=== PATIENT | female | born 1985 | race Caucasian/White ===

== ENCOUNTER 2020-04-25 12:48 | Emergency (ER) | payer OTHER, SELFPAY ==
--- NOTE | ~2020-04-25 | XR_ITS ---
XR toe 5th RT min 2V DATE: 04/25/2020 13:11 INDICATION: Fifth digit injury, pain TECHNIQUE: 4 views COMPARISON: None FINDINGS: There is a transverse fracture at the proximal shaft of the proximal phalanx of the fifth d igit with minimal medial and anterior displacement, minimal apex anteromedial angulation. No dislocation. IMPRESSION: Transverse proximal shaft fracture Reviewed, dictated and finalized at location A.
--- NOTE | ~2020-04-25 | XR_ITS ---
XR toe 5th RT min 2V DATE: 04/25/2020 13:52 INDICATION: Reduction of fifth digit fracture TECHNIQUE: 4 views COMPARISON: 04/25/2020 right fifth toe FINDINGS: Again noted is a transverse proximal shaft fracture of the proximal phalanx of fifth digit there is minimal displacement. There is approximately 15 degrees apex medial and approximately 20-30 degrees apex anterior angulation. IMPRESSION: Fracture of proximal shaft of proximal phalanx of fifth digit Reviewed, dictated and finalized at location A.
--- NOTE | 2020-04-25 12:58 | ED.LOWEXIN ---
HPI - Extremity Injury (Lower) General Chief Complaint: Extremity Injury, Lower Stated Complaint: right pinky toe Time Seen by Provider: 04/25/20 13:15 Source: patient and RN notes reviewed Mode of arrival: ambulatory Limitations: no limitations History of Present Illness HPI Narrative: 34-year-old female presents with concern for injury to the fifth digit of her right foot. Reports prior to arrival she jammed her toe on a door frame. Reports pain at rest, worsening pain with weightbearing and range of motion. Reports swelling, bruising. Denies any intervention prior to arrival MD complaint: foot injury Injury: Right: toes Related Data Home Medications Medication Instructions Recorded Confirmed bupropion HCl 150 mg 24 hr tablet, 150 mg PO QAM 06/14/19 04/25/20 extended release Allergies Allergy/AdvReac Type Severity Reaction Status Date / Time No Known Allergies Verified 04/25/20 12:51 Review of Systems Review of Systems: Narrative: CONSTITUTIONAL: Denies malaise, chills, sweats, or fever. CARDIOVASCULAR: Denies chest pain, palpitations, or edema. RESPIRATORY: Denies cough or dyspnea. SKIN: Reports bruising, swelling MUSCULOSKELETAL: Reports pain in the fifth digit of the right foot NEUROLOGIC: Denies numbness, weakness All systems reviewed & are unremarkable except as noted in HPI and below PMFSH Family History Family History (Updated 03/21/19 @ 08:07 by DOCTOR UNKNOWN) Father Diabetes mellitus Patient's father is in good health Mother Depression Hypertension Patient's mother is in good health Social History Social History Alcohol intake: current Comments At time of signature, agree with nursing past medical, surgical, social and family history. There is no relevant family history pertinent to the presenting complaint Exam Narrative: Exam Narrative: GENERAL: Well-appearing, well-nourished, and in no acute distress. HEAD: Normocephalic, atraumatic. EYES: PERRLA, conjunctivae clear NECK: Supple. CHEST: Speaks in full sentences. No respiratory distress. HEART: Regular rate and rhythm. Normal and equal peripheral pulses. EXTREMITIES: Fifth digit of right foot has normal sensation, limited normal range of motion. Mild edema and ecchymosis. Normal sensation with sensitivity to light touch and pain. No open wounds, no skin tenting, no devitalized tissue or atrophy, no trophic changes, no obvious deformity, alignment normal, no point tenderness, nearby joints and structures intact. Distal pulses palpable and equal bilaterally, skin warm, dry, pink. Capillary refill less than 3 seconds. SKIN: Warm, dry, no rash. NEURO: Alert and oriented x3. PSYCH: Normal mood and affect Course Course Emergency Course: Patient is aware of diagnosis, understands and agrees to treatment plan. Anticipatory guidance given. Patient agrees to follow-up as directed and is aware of reasons to seek care at the emergency department. Portions of this record may have been created with voice recognition software Vital Signs Vital signs: Vital Signs Temperature 97.3 F L 04/25/20 13:00 Pulse Rate 71 04/25/20 13:00 Respiratory Rate 16 04/25/20 13:00 Blood Pressure 127/78 04/25/20 13:00 Pulse Oximetry 100 04/25/20 13:00 Temperature 97.3 F L 04/25/20 13:00 Pulse Rate 71 04/25/20 13:00 Respiratory Rate 16 04/25/20 13:00 Blood Pressure 127/78 04/25/20 13:00 Pulse Oximetry 100 04/25/20 13:00 Reviewed. Procedures Orthopedic Fracture Reduction Fracture #1: Fracture Reduction date: 04/25/20 Fracture Reduction time: 13:45 Time Out Performed: Yes Side: right Fracture Reduction Location: toe Analgesia: none Pre-Procedure Neuro Vascular Exam: normal Technique: direct manipulation Post Reduction X-rays Demonstrate: other (No change) Post-reduction neuro exam: intact Post-reduction vascular exam: intact Splint Appl
[2020-04-25 13:00] VITALS: BP 127/78; PULSE 71; RESP 16; TEMP 36.3; O2SAT 100
[2020-04-25] MEDS: IBUPROFEN 400 MG TABLET 800 MG PO (13:58)
== END 2020-04-25 14:15 | disposition home or self-care (01) ==
PROVIDERS: Emergency Provider Nurse Practitioner; PCP Family Medicine
DX: S92.511A Displaced fracture of proximal phalanx of right lesser toe(s), initial encounter for closed fracture (principal); W22.01XA Walked into wall, initial encounter; Y93.9 Activity, unspecified
CPT/HCPCS: 28515; 73660; 99215; A9270; G0463

== ENCOUNTER → 2020-10-26 00:56 | Outpatient (CLI) | payer OTHER, SELFPAY ==
[2020-10-26 20:24] LABS: SARS-CoV-2 RNA PCR Negative
== END ==
PROVIDERS: PCP Family Medicine; Visit Provider Surgery Plastic and Reconstructive Surgery
DX: Z01.812 Encounter for preprocedural laboratory examination (principal); Z20.822 Contact with and (suspected) exposure to COVID-19
CPT/HCPCS: C9803; U0003; U0005

== ENCOUNTER 2020-10-29 08:49 | Day surgery (SDC) | payer OTHER, SELFPAY ==
[2020-10-20 13:47] VITALS: BMI 30.4
--- NOTE | 2020-10-20 13:57 | SUR.PREOP ---
Pre-op clearance obtained from pcp Dr. Senior and Cardio-Pulmonary Dr.- Dr. Simona León-- No Pulmonary contraindication to surgery Dr. Whitehead informed of information and no pre-op anesthesia testing needed
[2020-10-29] VITALS (7 sets, daily range): BP systolic 131–146; BP diastolic 83–91; PULSE 63–82; RESP 15–18; TEMP 36.3–36.9; O2SAT 98–100; BMI 29.7
[2020-10-29] MEDS: LACTATED RINGERS 1,000 ML 30 ML IV CONT ×2 (10:00→14:46)
--- NOTE | 2020-10-29 10:09 | WPDANESEPPF ---
Anes - Initial Pre Proc Eval Procedure: Operation Date: 10/29/20 11:00 Proposed Procedures p Bilateral Breast Augmentation Mammoplasty with Galaflex - Richmond Pradhan MD s Bilateral Breast Mastopexy - Richmond Pradhan MD Date/Time: 10/29/20 10:09 Surgeon: Richmond Pradhan MD Pre Op Diagnosis: Micromastia Patient Data Age: 35 Gender: F Height: 1.6 m Weight: 78 kg Allergies Allergy/AdvReac Type Severity Reaction Status Date / Time No Known Allergies Verified 10/29/20 10:10 Home Medications Medication Instructions Recorded Confirmed Type alprazolam 0.25 mg tablet 0.25 mg PO TID PRN 10/08/20 10/20/20 History polyethylene glycol 3350 17 17 g PO DAILY 10/08/20 10/20/20 History gram/dose oral powder docusate sodium 100 mg capsule 100 mg PO DAILY #14 cap 10/15/20 10/20/20 Rx ondansetron HCl 4 mg tablet 4 mg PO Q8H #28 tablet 10/15/20 10/20/20 Rx carisoprodol 350 mg tablet 350 mg PO TID PRN #21 tablet 10/19/20 10/20/20 Rx oxycodone-acetaminophen 5 mg-325 1 tablet PO Q6H PRN #15 tablet 10/19/20 10/20/20 Rx mg tablet Patient hx anesthesia problems: none Family hx anesthesia problems: none PMFSH Past Medical History Medical History (Updated 10/29/20 @ 10:10 by Danilo Whitehead DO) Anxiety Chronic constipation History of pulmonary embolism after appendectomy Obesity (BMI 30.0-34.9) Seasonal allergic rhinitis Surgical History Surgical History History of appendectomy Family History Family History Father Diabetes mellitus Patient's father is in good health Mother Depression Hypertension Patient's mother is in good health Social History Social History Smoking status: Former smoker Tobacco type: e-cigarettes/vaping Alcohol intake: current Substance use: never Living arrangements: with family Gender identity (if verbalized by the patient): Female Spiritual care concerns: No Anes - Eval Final PreProcedure Day of Procedure 10/29/20 10:09 Patient weight: obese Heart: regular rate and rhythm Lungs: clear to auscultation and normal air movement Airway: Mallampati scale class II Neurological: alert and oriented Last oral intake: >/= 8 hours ASA classification: II Emergent: no Anesthetic plan: proceed Anesthesia type and monitoring: general LMA and standard monitoring Informed Consent: The patient's anesthetic plan and its attendant risks and benefits were discussed with the patient/family/POA. Questions were solicited and answers provided to the satisfaction of the patient/family/POA.
--- NOTE | 2020-10-29 11:16 | WPDHPUPDATE1 ---
History and Physical Update Update Date/Time: 10/29/20 11:16 History and Physical has been reviewed, including an updated exam of the patient. There are NO changes in the patient's condition. Risks, benefits, and alternatives have been discussed and questions answered. Patient agrees to proceed with procedure.
--- NOTE | 2020-10-29 11:40 | PM.PROC ---
Procedure Note - Detailed Date of procedure: 10/29/20 Pre-op diagnosis: Micromastia Breast Ptosis Post-op diagnosis: same Procedure performed: Bilateral Augmentation Mastopexy with Galaflex Description of procedure: She is here today for bilateral breast augmentation. Previously and again today the risks, benefits, alternatives were discussed in extensive detail. I wanted her to be very realistic about the risks involved as well as expectations. We discussed aftercare and what to monitor for. Made sure answered all of her questions to her satisfaction today and consent was obtained. Marked in the preoperative holding area with their verification. The patient was taken to the operating room placed supine on the operating table. Anesthesia was provided by anesthesiology. A surgical time-out was taken. We cleansed the skin and 1% lidocaine and 0.25% Marcaine with epinephrine was used anesthetize as a field block. She was prepped and draped in a standard sterile fashion. Tegaderm nipple Cam were placed. I de-epithelialized inferior flap to provide coverage at the T junction. A 15 blade used to make an incision above the inframammary fold. Dissection was continued at 45 degree angle until the chest wall as identified. I incised the pectoralis major along its inferior border and completely released the inferior border leaving the medial border intact. I created a subpectoral pocket in the appropriate dimensions based on our preoperative planning for the implant. I then copiously irrigated with saline solution and verified a strict hemostasis. Next the use a triple antibiotic and Betadine containing solution to irrigate the pocket. I washed my gloves with the triple antibiotic and Betadine solution. We washed the implant immediately upon opening it with this solution and only opened it when we needed it. I used implant funnel and no-touch technique. The implant was introduced into the pocket using the funnel. Having verified positioning of the implant this was closed using 2-0 Vicryl. I then tailor tacked the breast into place. Placed her in a sitting position and verified my bejarano. Marked out the nipple-areolar complex at 38 mm. This is based on preoperative planning intraoperative measurements on observation which was in full agreement. I then placed supine. De-epithelialized a superior pedicle. Resected the central keel and inferior aspect. Elevated medial and lateral breast flaps. Galaflex had been soaking in betadine / tripple antibiotic on the back table. This was trimmed and tacked into place using 2-0 Vicryl. I then closed the flaps over this with 2-0 Vicryl. Closed the vertical pillars until Vicryl. Closed around the areola and vertical incision with 3-0 Monocryl. The IMF with 3-0 strata fix. Then ran everything with running subcuticular 4-0 Monocryl. Tissue glue was placed. Fluffs, Juan wrap, and surgical bra were placed. Patient was awoke and taken to PACU without difficulty. All instrument sponge counts were correct at the end of the case. Anesthesia: GLMA Surgeon: Richmond Pradhan MD Estimated blood loss (mL): 30 Drains: No Packing: No Pathology: none sent Complications: No immediate complications Condition: stable Disposition: PACU Findings: Bilateral superior pedicle, invert T mastopexy Bilateral Natrelle Inspira SoftTouch Implants 445cc Right REF [facility]-445 SN [id number] Left REF [facility]-445 SN [id number]
[2020-10-29] MEDS: ceFAZolin SODIUM 2 GM/20 ML SW SYRINGE IV PUSH (11:41)
[2020-10-29] MEDS: fentaNYL CITRATE INJ (*CRX) 100 MCG/2 ML VIAL 25 MCG IV PUSH ×4 (14:53→15:14)
--- NOTE | 2020-10-29 15:20 | WPDANESPN ---
Anes - Prog Note Post-Op Date/Time: 10/29/20 15:20 Cardiovascular status: normal Respiratory status: normal Airway patency: baseline Mental status: baseline Post-Op hydration status: normal Vital Signs: Last Vital Signs Temp 36.3 C L 10/29/20 14:42 Pulse 67 10/29/20 15:15 Resp 17 10/29/20 15:15 BP 131/83 10/29/20 15:15 Pulse Ox 98 10/29/20 15:15 Pain Score (VAS): 5/10 - patient states pain medication has helped and feels pain is manageable. Post-procedural complaints: none Patient Feedback: Patient satisfied with anesthetic care.
[2020-10-29] MEDS: oxyCODONE HCL (*CRX) 5 MG TAB IR PO (15:36)
== END 2020-10-29 16:15 | disposition home or self-care (01) ==
PROVIDERS: PCP Family Medicine; Visit Provider Surgery Plastic and Reconstructive Surgery
PROC: (CPT 19325; principal; 2020-10-29 11:00)
PROC: (CPT 19316; 2020-10-29 11:00)
DX: N64.82 Hypoplasia of breast (principal)
CPT/HCPCS: 19325

== ENCOUNTER 2021-07-09 06:40 | Emergency (ER) | payer OTHER, SELFPAY ==
[2021-07-09 06:50] VITALS: BP 144/67; PULSE 68; RESP 23; TEMP 36.6; O2SAT 100
--- NOTE | 2021-07-09 06:55 | PC.NURSE ---
Pt mother stormed into ED (after being told due to policy she must wait in the car until pt has a room), states Come on, we're leaving, lets go somewhere else. They dont have these polices at other hospitals. Pt ambulated out w/ mother.
== END 2021-07-09 06:55 | disposition left against medical advice (07) ==
PROVIDERS: PCP Family Medicine
DX: Z53.21 Procedure and treatment not carried out due to patient leaving prior to being seen by health care provider (principal)
CPT/HCPCS: 99199

== ENCOUNTER 2022-02-24 08:19 | Outpatient (RCR) | payer OTHER, SELFPAY ==
[2022-02-24] MEDS: ACETAMINOPHEN 325 MG TABLET 650 MG PO (08:39)
[2022-02-24] MEDS: diphenhydrAMINE HCl CAP 25 MG CAPSULE PO (08:39)
[2022-02-24] MEDS: FAMOTIDINE 20 MG TABLET PO (08:39)
[2022-02-24 08:41] VITALS: BP 134/79; PULSE 68; TEMP 35.9; O2SAT 100
[2022-02-24] MEDS: BEBTELOVIMAB 175 MG/2 ML VIAL IV PUSH (08:57)
[2022-02-24 09:33] VITALS: BP 132/84; PULSE 67; TEMP 35.9; O2SAT 100
== END 2022-02-24 16:00 ==
LOC: AMCINF 08:19
PROVIDERS: PCP Family Medicine; Referring Provider Family Medicine; Visit Provider Internal Medicine Hematology & Oncology
DX: U07.1 COVID-19 (principal)
CPT/HCPCS: A9270; M0222; Q0222

== ENCOUNTER → 2022-06-16 15:18 | Outpatient (CLI) | payer OTHER, SELFPAY ==
--- NOTE | ~2022-06-16 | XR_ITS ---
XR chest 2V DATE: 06/16/2022 15:23 INDICATION: Cough, bronchitis TECHNIQUE: 2 views COMPARISON: None FINDINGS: Normal heart size. No hilar or mediastinal enlargement. No pulmonary infiltrate or consolid ation, pleural effusion or pulmonary vascular congestion or pneumothorax. IMPRESSION: No active cardiopulmonary disease Reviewed, dictated and finalized at location A. NISTRATIVE EXECUTIVE
== END ==
PROVIDERS: PCP Nurse Practitioner Family; Visit Provider Nurse Practitioner Family
DX: J40 Bronchitis, not specified as acute or chronic (principal); R05.9 Cough, unspecified
CPT/HCPCS: 71046

== ENCOUNTER 2022-12-23 09:42 | Outpatient (CLI) | payer OTHER, SELFPAY ==
--- NOTE | 2023-01-09 17:03 | WPDHOMESLEEP ---
Sleep Study - Home Unattended Date of Study: 12/23/22 Ordering Provider: Zita Robert NP Interpreting Provider: Park Mckinnon, DO Home Sleep Study Type: Watch PAT Height: 1.6 m Weight: 90.718 kg Body Mass Index: 35.4 Neck Circumference (inches): 15 [place]: 16 Reason for Sleep Study Unrefreshing sleep, daytime hypersomnia Sleep History The patient is a 37-year-old female with anxiety, depression, hyperlipidemia, insomnia, seasonal allergies, history of tobacco use and obesity that had sleep study ordered by her primary care for evaluation of sleep apnea. The patient occasionally awakens from sleep short of breath. She occasionally awakens at night with heartburn, belching or cough. She constantly snores and is frequently loud enough that others complain. She occasionally has trouble sleeping when she has a cold. She occasionally wakes up gasping for air throughout the night. She occasionally has breathing problems at night observed by herself or others. She frequently sweats excessively at night. She frequently has heart palpitations or irregular heartbeats during the night. She frequently falls asleep during the day but never while driving. She denies cataplexy. She constantly has trouble at school or work due to sleepiness. She frequently feels unable to move while waking up or falling asleep. She frequently experiences vivid dreamlike scenes upon awakening or falling asleep. She denies feeling afraid of going to sleep. She occasionally has nightmares and occasionally remembers her dreams. She constantly has thoughts racing through her mind. She occasionally feels sad or depressed. She constantly has anxiety. She rarely has muscular tension. She occasionally notices parts of her body jerk. She occasionally kicks during the night. She occasionally experiences crawling and aching feelings in her legs and occasionally has leg pain during the night. She rarely grinds her teeth during sleep and rarely awakens with morning jaw pain. She is frequently bothered by pain during the day and frequently awakened by pain during the night. She occasionally wakes up feeling stiff in the morning. He occasionally wakes up with sore or achy muscles. She occasionally wakes up with pain in the neck, spine or other joints. She goes to bed between 830-9 p.m. on both weekdays and weekends. It takes her over 3 hours to fall asleep. She wakes up 2-3 times throughout the night for unknown reasons and it takes over an hour for her to fall back asleep. She wakes up at 4:00 a.m. on weekdays and at 6:00 a.m. on the weekends. she will stay in bed for up to an hour after waking up in the morning. She currently lives with her 2 children and their dad. She does not consume any caffeinated beverages within 2 hours of bedtime. She does not engage in physical exercise before bedtime. He will occasionally read before falling asleep. She denies watching television before falling asleep. She will take naps in the afternoon or the evening but they are not refreshing. She drinks 1 caffeinated beverage every other day. She will drink 1 alcoholic beverage per week. She is a former smoker. She denies recreational drug use. FORMERLY [facility] Past Medical History Medical History Altered bowel habits Anxiety BMI 33.0-33.9,adult BMI 34.0-34.9,adult BMI 35.0-35.9,adult Bronchitis Chronic constipation Coughing COVID (02/19/22) positive test 02/21/2022. Vaccinated Depression History of pulmonary embolism after appendectomy Hyperlipidemia Hypersomnia Insomnia Obesity (BMI 30.0-34.9) Screening for diabetes mellitus Seasonal allergic rhinitis Snoring Surgical History Surgical History History of appendectomy Hx laparoscopic cholecystectomy Family History Family History Father Leann
[2023-01-09 18:19] VITALS: BMI 35.4
== END 2022-12-26 14:05 | disposition home or self-care (01) ==
LOC: ANHCSM 09:43
PROVIDERS: PCP Nurse Practitioner Family; Visit Provider Nurse Practitioner Family
DX: G47.10 Hypersomnia, unspecified (principal); G47.33 Obstructive sleep apnea (adult) (pediatric)
CPT/HCPCS: 95800

== ENCOUNTER → 2023-02-09 13:37 | Outpatient (CLI) | payer OTHER, SELFPAY ==
--- NOTE | ~2023-02-09 | XR_ITS ---
EXAMINATION: XR_CERV2-3V_CR DATE: 02/09/2023 13:57 INDICATION: Cervical radiculopathy. TECHNIQUE: 3 views of cervical spine were obtained. COMPARISON: None. FINDINGS: There is 6 degrees dextrocurvature of cervical spine. There is mild kyphosis of cervical sp ine. Vertebral body heights and intervertebral disc heights are normal. The facet joints are normal. No central canal stenosis or prevertebral soft tissue swelling. IMPRESSION: 1. No etiology for the patient's symptoms. Reviewed, dictated and finalized at location A.
--- NOTE | ~2023-02-09 | XR_ITS ---
EXAMINATION: XR shoulder RT min 2V DATE: 02/09/2023 13:57 INDICATION: Right shoulder pain. TECHNIQUE: 4 views of right shoulder were obtained. COMPARISON: None. FINDINGS: Bone alignment is normal. No fracture. Joint spaces are well maintained. IMPRESSION: 1. Normal right shoulder. Reviewed, dictated and finalized at location A. IMPRESSION: 1. Normal right shoulder.
== END ==
PROVIDERS: PCP Family Medicine; Visit Provider Nurse Practitioner Family
DX: M25.511 Pain in right shoulder (principal); M54.12 Radiculopathy, cervical region
CPT/HCPCS: 72040; 73030

== ENCOUNTER 2023-08-02 10:36 | Outpatient (CLI) | payer OTHER, SELFPAY ==
--- NOTE | 2023-08-11 12:05 | WPDHOLTEREM ---
Holter/Event Monitor Holter/Event Monitor Date of procedure: 08/02/23 Holter/Event Procedure: 24 Hr Holter Monitor Indications: Palpitations Conclusion: 1. 24 hour holter monitor on 08/02/23. 2. Underlying rhythm is sinus rhythm. HR range 45-140 bpm; average HR 75 bpm. HR at 45 bpm was at 13:53. HR at 140 bpm was at 00:49. 3. There are 1 premature supraventricular complex. No supraventricular tachycardia. 4. No premature ventricular complexes. No ventricular tachycardia. 5. No sinoatrial or atrioventricular blocks. No significant pauses greater than 2 seconds. 6. No symptoms available for correlation.
== END 2023-08-02 10:37 | disposition home or self-care (01) ==
LOC: ANHCARD 10:37
PROVIDERS: PCP Family Medicine; Visit Provider Nurse Practitioner Family
DX: R00.2 Palpitations (principal); R03.0 Elevated blood-pressure reading, without diagnosis of hypertension
CPT/HCPCS: 93225; 93226

== ENCOUNTER → 2024-11-15 14:37 | Outpatient (CLI) | payer OTHER, SELFPAY ==
--- NOTE | ~2024-11-15 | XR_ITS ---
XR shoulder LT min 2V Ordering provider: Zita Robert NP History: . M25.512 - Pain in left shoulder . Comparison: None. FINDINGS: BONES: No acute fracture or dislocation. JOINT SPACES: The acromioclavicular joint is normal. The glenohumeral joint is normal. SOFT TISSUES: Normal. IMPRESSION: No acute osseous abnormality left shoulder. Reviewed, dictated and finalized at location A.
--- OUTSIDE RECORDS SUMMARY | 2024-11-15 14:41 | XMS_ITS | Encounter Summary ---
Author Organization [employer] Address [address] [place] [address] Care Team Providers Care Power House Control Room Operator Name Role Phone Nghia Vale MD Primary Care Provider [phone] Encounter Details Date Type Department Care Team (Late st Contact Info) Description 12/21/[address] 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 Physical Therapy Discharge Summary Patient: Rocio Lambert Date: 12/21/2015 Date of : 1985 Referring Provider: Nghia Vale MD Diagnosis: bilat wrist tendonitis, LBP Rocio Lambert was seen from 10/09/15 to 10/16/15 for a total of 2 visits with 2 cancellations and0 no shows. This patient did not return for further therapy visits following the last session noted above, therefore a complete re-evaluation of status was not completed & she is now Discharged from PT. Please contact me if you have any questions. Thank you for this referral. Janette Mcginnis, [facility] [address], [place] [address] (phone) [phone] (fax) [place] License Number: [id number] documented in this encounter Plan of Treatment Not on file documented as of this encounter Visit Diagnoses Not on filedocumented in this encounter Care Teams Power House Control Room Operator Relationship Specialty Start Date End Date Nghia Vale MD PCP - General Family Practice 09/18/15 documented as of this encounter
--- OUTSIDE RECORDS SUMMARY | 2024-11-15 14:41 | XMS_ITS | Clinical Summary ---
Author Organization [facility] Administrative Offices Address [address] [place] [address] Care Team Providers Care Tuyere Fitter Name Role Phone Nghia Vale MD Primary Care Provider [phone] Allergies No known active allergies Medications ibuprofen (MOTRIN) 200 mg tablet Take 200 mg by mouth every 6 hours as needed for Pain, Mild. Active acetaminophen (TYLENOL) 500 mg tablet Take 1,000 mg by mouth every 6 hours as needed . Active acetaminophen-ca ffeine-butalbita l (FIORICET) 325-40-50 mg tablet Take 1 Tablet by mouth every 4 hours as needed for Migraine. 10 Tablet 02/11/2018 Active Active Problems Problem Noted Date Diagnosed Date Acute chest pain 04/30/2016 Abnormal ECG 04/30/2016 Tobacco use 04/28/2016 Family History Medical History Relation Name Comments Heart Disease Father stents placed age 53 Hypertension Mother Other Mother IBS Relation Name Status Comments Father Alive Mother Alive Social History Tobacco Use Types Packs/Day Years Used Date Smoking Tobacco: Every Day Cigarettes 0.5 10 Smokeless Tobacco: Never Alcohol Use Standard Drinks/Week Comments No 0 (1 standard drink = 0.6 oz pur e alcohol) Comments No Sex and Gender Information Value Date Recorded Sex Assigned at Not on file 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 Gender Identity Not on file Sexual Orientation Not on file Last Filed Vital Signs Vital Sign Reading Time Taken Comments Blood Pressure 117/65 02/11/2018 6:00 AM CDT Pulse 61 02/11/2018 6:00 AM CDT Temperature 37.1 C (98.8 F) 02/11/2018 4:12 AM CDT Respiratory Rate 18 02/11/2018 6:00 AM CDT Oxygen Saturation 98% 02/11/2018 6:00 AM CDT Inhaled Oxygen Concentration - - Weight 78.5 kg (173 lb) 02/11/2018 4:12 AM CDT Height 160 cm (5' 3 ) 02/11/2018 4:12 AM CDT Body Mass Index 30.65 02/11/2018 4:12 AM CDT Plan of Treatment Health Maintenance Due Date Last Done Comments PNEUMOCOCCAL VACCINE 0-49 YE ARS (1 of 2 - PCV) 1993 DTAP/TDAP/TD VACCINES (1 - Tdap) 2006 HEPATITIS B VACCINES (1 of 3 - 19+ 3-dose series) 2006 HPV/Cotest (21-29) 2008 PAP SMEAR 2008 CERVICAL CANCER SCREENING 2017 HPV/Cotest (30-65) 2017 PAP SMEAR 2017 INFLUENZA VACCINE (#1) 2024 HPV VACCINES Aged Out No longer eligi ble based on patient's age to complete this topic Insurance [employer] Advance Directives For more information, please contact: [phone] * Full Code (Latest Code Status on File) Date Activated Date Inactivated Comments 04/30/2016 1:41 AM 04/30/2016 5:16 PM Care Teams Tuyere Fitter Relationship Specialty Start Date End Date Nghia Vale MD PCP - General Family Practice 09/18/15
== END ==
PROVIDERS: PCP Nurse Practitioner Family; Visit Provider Nurse Practitioner Family
DX: M25.512 Pain in left shoulder (principal)
CPT/HCPCS: 73030

== ENCOUNTER 2025-01-02 10:54 | Outpatient (CLI) | payer OTHER, SELFPAY ==
--- OUTSIDE RECORDS SUMMARY | 2025-01-02 10:57 | XMS_ITS | Clinical Summary ---
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 Gender Identity Not on file Sexual Orientation [...] 4:12 AM CDT Height 160 cm (5' 3) 02/11/2018 4:12 AM CDT Body Mass Index 30.65 02/11/2018 4:12 AM CDT Plan of Treatment Health Maintenance Due Date Last Done Comments DTAP/TDAP/TD VACCINES (1 - Tdap) 2006 HEPATITIS B VACCINES (1 of 3 - 19+ 3-dose series) 2006 HPV/Cotest (21-29) 2008 CERVICAL CANCER SCREENING 2017 HPV/Cotest (30-65) 2017 PAP SMEAR 2017 INFLUENZA VACCINE (#1) 2024 HPV VACCINES Aged Out No longer eligi ble based on patient's age to complete this topic Insurance [employer] Advance Directives For more information, please contact: [phone] * Full Code (Latest Code Status on File) Date Activated Date Inactivated Comments 04/30/2016 1:41 AM 04/30/2016 5:16 PM Care Teams Savings Teller Relationship Specialty Start Date End Date Nghia Vale MD PCP - General Family Practice 09/18/15
--- OUTSIDE RECORDS SUMMARY | 2025-01-02 10:57 | XMS_ITS | Encounter Summary ---
Author Organization [email or web address] Address [address] [place] [address] Care Team Providers Care Drawbridge Operator Name Role Phone Nghia Vale MD Primary Care Provider [phone] Encounter Details Date Type Department Care Team (Late st Contact Info) Description 12/21/2015 Chart Note [facility] [employer] 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 Janette Mcginnis, JOHANA [facility] [address] [address] (phone) [phone] (fax) [place] License Number: [id number] documented in this encounter Plan of Treatment Not on file documented as of this encounter Visit Diagnoses Not on filedocumented in this encounter Care Teams Drawbridge Operator Relationship Specialty Start Date End Date Nghia Vale MD PCP - General Family Practice 09/18/15 documented as of this encounter
== END 2025-01-02 10:55 | disposition home or self-care (01) ==
LOC: ANHAUDIO 10:54
PROVIDERS: PCP Nurse Practitioner Family; Visit Provider Otolaryngology
DX: H69.90 Unspecified Eustachian tube disorder, unspecified ear (principal); H74.09 Tympanosclerosis, unspecified ear; Z86.69 Personal history of other diseases of the nervous system and sense organs; J31.0 Chronic rhinitis; H90.11 Conductive hearing loss, unilateral, right ear, with unrestricted hearing on the contralateral side
CPT/HCPCS: 92557; 92567